=== PATIENT | male | born 1985 | race Asian ===

== ENCOUNTER 2024-08-15 12:36 | Emergency (ER) | payer OTHER, SELFPAY ==
[2024-08-15 12:37] VITALS: BMI 27.1
[2024-08-15 14:31] VITALS: BP 134/76; PULSE 98; RESP 18; TEMP 39.1; O2SAT 96
--- NOTE | 2024-08-15 14:40 | PD.EDRME ---
Rapid Medical Screening Exam RME Arrival date/time: 08/15/24 12:36 38-year-old male presents emergency department complaining of generalized rash with fever. Chief Complaint: Skin/Abscess/Foreign Body Time Seen by Provider: 08/15/24 14:35 Vital signs: Vital Signs Temperature 102.4 F H 08/15/24 14:31 Pulse Rate 98 08/15/24 14:31 Respiratory Rate 18 08/15/24 14:31 Blood Pressure 134/76 H 08/15/24 14:31 Pulse Oximetry (%) 96 08/15/24 14:31 Oxygen Delivery Method Room Air 08/15/24 14:31 Vital signs reviewed by provider: Yes
[2024-08-15] MEDS: ACETAMINOPHEN 500 MG TABLET 1000 MG PO (15:05)
[2024-08-15 15:57] LABS: Lactate (Lactic Acid) 1.1 mMol/L (0.4-2.0)
[2024-08-15 15:58] LABS: Basophils % (Auto) 1 % (0-2.5); Eosinophils % (Auto) 0 % (0-10); Hematocrit 45.1 % (41.0-53.0); Hemoglobin 15.3 g/dL (13.5-16.0); Immature Granulocytes % (Auto) 0 % (0-0); Immature Granulocytes Auto 0.01 Thou/mm3 (0.00-0.00); Lymphocytes # (Auto) 1.3 Thou/mm3 (1.0-4.8); Lymphocytes % (Auto) 22 % (10-50); Mean Corpuscular HGB Conc 33.9 g/dl (31.0-37.0); Mean Corpuscular Hemoglobin 28.6 pg (25.0-35.0); Mean Corpuscular Volume 84 fL (80-100); Monocytes # (Auto) 0.8 Thou/mm3 (0.0-0.8); Monocytes % (Auto) 13 % (0-12); Neutrophils # (Auto) 3.8 Thou/mm3 (1.8-7.7); Neutrophils % (Auto) 64 % (37-80); Nucleated Red Blood Cell % 0 /100 WBC (0); Platelet Count 145 Thou/mm3 (140-440); RDW Standard Deviation 39.8 fL (35.1-43.9); Red Blood Count 5.35 Miln/mm3 (4.50-5.90)
[2024-08-15 16:29] LABS: Alanine Aminotransferase 88 U/L (10-49); Albumin, Serum 4.7 gm/dL (3.5-5.0); Albumin/Globulin Ratio 1.7 (1.2-2.2); Alkaline Phosphatase 96 U/L (46-116); Anion Gap 9 (7-16); Aspartate Amino Transferase 77 U/L (0-34); BUN/Creatinine Ratio 13 Ratio (12-20); Bilirubin,Total 0.7 mg/dL (0.3-1.2); Blood Urea Nitrogen 17 mg/dL (9-23); Calcium 9.2 mg/dL (8.3-10.6); Calcium (Corrected) 9.2 mg/dL (8.5-10.1); Carbon Dioxide 25.5 mMol/L (20.0-31.0); Chloride 96 mMol/L (98-107); Creatinine (Component) 1.3 mg/dL (0.6-1.3); Estimated Creatinine Clearance 83.7 mL/min (>60); Globulin 2.8 gm/dL (2.3-3.5); Glucose 145 mg/dL (74-106); Osmolality,Calculated 265 (275-295); Potassium 3.8 mMol/L (3.4-5.1); Sodium 130 mMol/L (136-145); Total Protein 7.5 gm/dL (5.7-8.2); eGFR > 60 See Note
[2024-08-15 19:35] VITALS: BP 149/87; PULSE 74; RESP 15; TEMP 36.8; O2SAT 96
--- NOTE | 2024-08-15 20:00 | EDNOTE_ITS ---
ED General RME/HPI General Chief complaint: Skin/Abscess/Foreign Body Stated complaint: RASH ON HEAD AND BODY SINCE AM Time Seen by Provider: 08/15/24 14:35 Arrival date/time: 08/15/24 12:36 CC: Rash HPI onset approximately 2 days ago but outbreak that is involving the entire head neck face chest torso back and upper arms. No prior history of similar events these are papules and vesicles that are fluid-filled mild surrounding erythema all in various stages of eruption and resolution. Small amount of oozing from some those that are open. Patient is not aware that he ever had chickenpox in his life. RME / HPI RME / HPI narrative: 08/15/24 12:36 38-year-old male presents emergency department complaining of generalized rash with fever. Related Data Previous Rx's ?Medication ?Instructions ?Recorded pramoxine-calamine 1 %-8 % lotion 1 applic topical QDAY PRN itching 08/15/24 (Calamine Medicated) #177 mL Allergies Allergy/AdvReac Type Severity Reaction Status Date / Time No Known Allergies Allergy Verified 08/15/24 12:39 Review of Systems Review of Systems Narrative Review of Systems: GEN: No fever, no chills, no weight loss EYES: No discharge, no visual changes, no pain HEENT: No ear pain, no congestion, no sore throat PULM: No shortness of breath, no cough, no congestion CV: No chest pain, no dyspnea on exertion, no palpitations GI: No nausea, no vomiting, no diarrhea, no pain, no constipation : No frequency, no urgency, no dysuria MUSC/SKEL: No joint pain, no back pain SKIN: + rash PSYCH: No hallucinations, no depression HEME/LYMPH: No easy bleeding or bruising tendencies NEURO: No weakness, no headache Past Medical History Social History SMOKING STATUS: Never smoker ED Exam Narrative Physical exam: [General: Not in any acute distress Head normocephalic HEENT: Within acceptable limits Neck is supple nontender Chest equal chest rise nontender to palpation Respiratory: Clear to auscultation no wheezes crackles or rubs CV: Rate rhythm is regular no murmurs rubs or clicks Abdomen is distended secondary to body habitus soft nontender no masses positive bowel sounds all 4 quadrants Back: No CVA tenderness no spinous process tenderness from cervical spine thoracic and lumbar spine Skin: Circular vesicles in various stages of development rupture and drying out clear fluid erupting. Minimal surrounding erythema from each nonspecific pattern very dense to the scalp face and neck with less density to the torso back and upper extremities. No oral or ocular vesicles noted. Extremities: Moving all extremity against resistance cap refill less than 2 seconds neurosensory intact Neuro: Awake alert oriented x3 Glascow coma 15 no focal deficits] Course Quality Measures none Orders Category Date Time Status Bedside Influenza A&B Antigen Test NOW Care 08/15/24 14:40 Completed CBC Stat Lab 08/15/24 15:42 Completed CMP [Comprehensive Metabolic Panel] Stat Lab 08/15/24 15:42 Completed Lactic Acid [Lactate (Lactic Acid)] Stat Lab 08/15/24 15:42 Completed Procalcitonin Stat Lab 08/15/24 15:42 Completed Acetaminophen Tab [Tylenol ES Tab] Med 08/15/24 14:40 Discontinued 1,000 mg PO X1 ONE Vital Signs Vital signs: Vital Signs Temperature 102.4 F H 08/15/24 14:31 Pulse Rate 98 08/15/24 14:31 Respiratory Rate 18 08/15/24 14:31 Blood Pressure 134/76 H 08/15/24 14:31 Pulse Oximetry (%) 96 08/15/24 14:31 Oxygen Delivery Method Room Air 08/15/24 14:31 MDM Patient data External records reviewed:: [facility] previous records Clinical information provided by:: patient Social determinants that could affect healthcare access:: none Patient has the following chronic illnesses:: None How is presenting disease/condition affected by chronic disease/condition?: u neffected by Evaluation data The following diagnostics were reviewed and interpreted by me:: lab results Lab and/or radiology exams considered but not ordered:: CBC shows no acute leukocytosis anemia thrombocytopenia CMP shows no acute electrolyte imbalances renal impairment transaminitis or T. bili elevation Pro-[place] and lactic are normal. Interpretation Summary: I suspect varicella. Medications Medications considered but not ordered:: None Medication administrations:: Medication Administration History Discontinued Medications Acetaminophen (Acetaminophen 500 Mg Tablet) 1,000 mg PO X1 ONE Stop: 08/15/24 14:41 Last Admin: 08/15/24 15:05 Dose: 1,000 mg Documented By: [facility] None Consultations Consultation(s) initiated? (list below): No Diagnosis Differential Diagnosis ED Complaint MDM: Varicella contact dermatitis cellulitis Most likely diagnosis given after review of the tests above:: Varicella Admission Indicated Admission indicated?: not indicated Explain why admission is indicated or not indicated:: Stable for outpatient follow-up Admission Request Was there a request for admission?: No Disposition Plan Disposition Plan: Discharge Discharge Attestation Discharge Attestation: The patient and all family members were given an opportunity to ask questions and understood the discharge instructions. Discharge instructions specifically effects, indications for sooner follow up or return to the emergency department, and the expected course of current diagnosis. Patient condition: Stable Medical Decision Making Differential Diagnosis Differential Diagnosis: Varicella contact dermatitis cellulitis Lab Data 08/15/24 15:42 08/15/24 15:42 Labs: Lab Results 08/15/24 Range/Units 15:42 WBC 6.0 (3.8-10.6) Thou/mm3 RBC 5.35 (4.50-5.90) Miln/mm3 Hgb 15.3 (13.5-16.0) g/dL Hct 45.1 (41.0-53.0) % MCV 84 (80-100) fL MCH 28.6 (25.0-35.0) pg MCHC 33.9 (31.0-37.0) g/dl RDW Std Deviation 39.8 (35.1-43.9) fL Plt Count 145 (140-440) Thou/mm3 Neut % (Auto) 64 (37-80) % Lymph % (Auto) 22 (10-50) % [place] % (Auto) 13 H (0-12) % Eos % (Auto) 0 (0-10) % Baso % (Auto) 1 (0-2.5) % Neut # (Auto) 3.8 (1.8-7.7) Thou/mm3 Lymph # (Auto) 1.3 (1.0-4.8) Thou/mm3 [place] # (Auto) 0.8 (0.0-0.8) Thou/mm3 Eos # (Auto) 0.0 (0.0-0.5) Thou/mm3 Baso # (Auto) 0.0 (0.0-0.2) Thou/mm3 Immature Gran # (Auto) 0.01 H (0.00-0.00) Thou/mm3 Absolute Nucleated RBC 0.00 (0.00-0.00) Thou/mm3 Immature Gran % 0 (0-0) % Nucleated RBC % 0 (0) /100 WBC Sodium 130 L (136-145) mMol/L Potassium 3.8 (3.4-5.1) mMol/L Chloride 96 L (98-107) mMol/L Carbon Dioxide 25.5 (20.0-31.0) mMol/L Anion Gap 9 (7-16) BUN 17 (9-23) mg/dL Creatinine 1.3 (0.6-1.3) mg/dL Estim Creat Clear Calc 83.7 (>60) mL/min eGFR > 60 (60 - ) See Note BUN/Creatinine Ratio 13 (12-20) Ratio Glucose 145 H (74-106) mg/dL Calculated Osmolality 265 L (275-295) Lactic Acid 1.1 (0.4-2.0) mMol/L Calcium 9.2 (8.3-10.6) mg/dL Corrected Calcium 9.2 (8.5-10.1) mg/dL Total Bilirubin 0.7 (0.3-1.2) mg/dL AST 77 H (0-34) U/L ALT 88 H (10-49) U/L Alkaline Phosphatase 96 (46-116) U/L Total Protein 7.5 (5.7-8.2) gm/dL Albumin 4.7 (3.5-5.0) gm/dL Globulin 2.8 (2.3-3.5) gm/dL Albumin/Globulin Ratio 1.7 (1.2-2.2) Procalcitonin 0.40 (0.0-0.49) ng/ml Discharge Plan Plan Patient Disposition: HOME (Self Care) Patient condition on transfer: Stable Prescriptions/Referrals Prescriptions/Med Rec: New Calamine Medicated 1-8 % lotion 1 applic topical QDAY PRN (Reason: itching) Qty: 177 1RF Referrals: Ariel Marley MD [Physician] - In 1 week No Primary/Family,Physician [Primary Care Provider] - In 1 week Problem List Clinical Impression: Varicella Patient/Caregiver Discharge Instructions Education Materials: Understanding Chickenpox, ED Chickenpox (Adult) Print Language: Citizen Of [place] Stand Alone Forms: [facility] Award Info., Patient Portal Info Letter, Work/School Release 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
== END 2024-08-15 20:29 | disposition home or self-care (01) ==
PROVIDERS: Emergency Provider Emergency Medicine
DX: B01.9 Varicella without complication (principal)
CPT/HCPCS: 36415; 80053; 83605; 84145; 85025; 87400; 99283; A9270